=== PATIENT | female | born 1995 | race Caucasian/White ===

== ENCOUNTER 2016-07-24 11:29 | Day surgery (SDC) | payer OTHER ==
[2016-07-23 12:46] VITALS: BMI 26.6
[~2016-07-24 11:29] MED LIST: DEXAMETHASONE SOD PHOSPHATE 10 MG/ML 1 ML VIAL IV ONE; HEPARIN SODIUM,PORCINE 5,000 UNIT/ML 1 ML VIAL SQ ONE; MIDAZOLAM 2 MG/2 ML VIAL IV PRN; ONDANSETRON 4 MG/2 ML VIAL IVP ONE; SCOPOLAMINE 1.5MG/72HR PATCH TRANSDERM ONE; ceFAZolin 2 GM in SODIUM CHLORIDE 0.9% 100 ML IVPB ONE
[2016-07-24] MEDS: LACTATED RINGERS 1,000 ML IV SCH ×2 (12:58→13:09)
--- NOTE | 2016-07-24 13:03 | P.GSHP ---
History of Present Illness H&P Date: 07/24/16 Chief Complaint: Right upper quadrant pain Patient seen in the office last week with complaints of worsening right upper quadrant pain. Pain does radiate to the back. These episodes last 30 minutes to several hours. She does have nausea and vomiting during these episodes. Currently pain free. Recent liver enzymes were normal. Recent white blood cell count slightly elevated. Ultrasound shows gallstones with a thickened gallbladder wall. Denies any changes in the color of her skin urine or stool. Past Medical History Past Medical History: No Reported History Additional Past Medical History / Comment(s): intermittent abdominal pain History of Any Multi-Drug Resistant Organisms: None Reported Past Surgical History: Ear Surgery Past Anesthesia/Blood Transfusion Reactions: No Reported Reaction Additional Past Anesthesia/Blood Transfusion Reaction / Comment(s): no hx blood transfusion Past Psychological History: No Psychological Hx Reported Smoking Status: Former smoker Past Alcohol Use History: None Reported Additional Past Alcohol Use History / Comment(s): quit smoking July 2016, smoked approx 3 yrs <1ppd Past Drug Use History: None Reported - Past Family History Mother Family Medical History: No Reported History Father History Unknown: Yes Medications and Allergies Home Medications Medication Instructions Recorded Confirmed Type Acetaminophen Tab [Tylenol Tab] 650 mg PO Q6H PRN 07/23/16 07/24/16 History Allergies Allergy/AdvReac Type Severity Reaction Status Date / Time No Known Allergies Allergy Verified 07/24/16 12:42 Surgical - Exam Vital Signs Temp Pulse Resp BP Pulse Ox 98.4 F 72 16 104/61 97 07/24/16 12:45 07/24/16 12:45 07/24/16 12:45 07/24/16 12:45 07/24/16 12:45 Physical exam: General: Well-developed, well-nourished HEENT: Normocephalic, sclerae nonicteric Abdomen: Nontender, nondistended Extremities: No edema Neuro: Alert and oriented Assessment and Plan (1) Chronic cholecystitis Narrative/Plan: Will proceed with laparoscopic cholecystectomy today. Risks of bleeding, infection, bile leak, bile duct injury, retained common bile duct stone, conversion to an open procedure were discussed. She understands and wishes to proceed. Status: Acute
[2016-07-24] MEDS ORDERED: BUPIVACAIN-EPI 0.25%-1:200,000 30 ML VIAL SQ ONE ×2 (13:10)
[2016-07-24] MEDS ORDERED: LIDOCAINE 1% INJ 10MG/ML (20 ML MDV) ONE (13:12)
[2016-07-24] MEDS ORDERED: NEOSTIGMINE 1 MG/ML 10 ML VIAL ONE (13:12)
[2016-07-24] MEDS ORDERED: fentaNYL (PF) 50 MCG/ML 2 ML AMP ONE (13:12)
[2016-07-24] MEDS ORDERED: PROPOFOL 10 MG/ML 20 ML VIAL IV ONE (13:12)
[2016-07-24] MEDS ORDERED: SUCCINYLCHOLINE CHLORIDE 100 MG/5 ML SYR IV ONE (13:12)
[2016-07-24] MEDS ORDERED: VECURONIUM 10 MG VIAL IV ONE (13:12)
[2016-07-24] MEDS ORDERED: MIDAZOLAM 2 MG/2 ML VIAL ONE (13:12)
[2016-07-24] MEDS ORDERED: GLYCOPYRROLATE 0.2 MG/ML 2 ML VIAL ONE (13:12)
[2016-07-24] MEDS ORDERED: NALOXONE 0.4 MG/ML 1 ML VIAL IV PRN (14:16)
--- NOTE | 2016-07-24 14:17 | P.PCN ---
Date of Procedure: 07/24/16 Procedure(s) Performed: PREOPERATIVE DIAGNOSIS: Chronic cholecystitis POSTOPERATIVE DIAGNOSIS: Same PROCEDURE: Laparoscopic cholecystectomy SURGEON: Taj EBL: Minimal see anesthesia record ANESTHESIA: Gen. COMPLICATIONS: None OPERATIVE PROCEDURE: The patient was brought and placed on the operating room table in the supine position. The patient was placed under general anesthesia at that time. The abdomen was prepped and draped in the usual sterile fashion. A small vertical infraumbilical incision was made. The fascia was grasped with the Rod forceps. The fascia was retracted anteriorly. The Veress needle was advanced into the peritoneal cavity. The saline drop test was normal. Insufflation took place up to 15 mmHg. A 5 mm optical trocar was advanced and the peritoneal cavity. 2 additional 5 mm trochars were placed in the right upper quadrant under direct visualization. A 10 mm trocar was advanced into the epigastric incision site. The gallbladder was retracted superiorly and laterally. The peritoneum overlying the infundibulum was bluntly dissected. The patient's cystic duct was visualized. The junction between the cystic duct common and hepatic duct was identified. The cystic duct was then divided after placement of 3 10 mm clips on the patient's side and one on the specimen side. The cystic artery was identified and clipped as well. A small vessel was seen along the gallbladder fossa and clipped as well. The gallbladder was then removed from the liver bed using electrocautery. The gallbladder was then removed from the epigastric trocar site with an Endo Catch bag. The gallbladder fossa was irrigated with saline. There was no evidence of any bleeding or biliary drainage seen. The trochars were then removed. The fascia at the 10 millimeter site was closed using a 0 Vicryl suture and the Juan Garcia technique. The skin at all 4 sites was closed using a 4-0 Monocryl stitch. At the end of this procedure the sponge and needle counts were correct. DISPOSITION: Stable to the recovery room
[2016-07-24] MEDS: HYDROmorphone 1 MG/ML 1 ML SYRINGE IVP PRN ×2 (14:23→14:46)
[2016-07-24 14:26] VITALS: TEMP 97.1
[2016-07-24] MEDS ORDERED: KETOROLAC 30 MG/ML 1 ML VIAL IVP ONE (14:40)
[2016-07-24] MEDS ORDERED: ONDANSETRON 4 MG/2 ML VIAL IVP ONE (14:46)
[2016-07-24 15:17] VITALS: RESP 16
[2016-07-24] MEDS ORDERED: HYDROcodone/APAP 5-325MG 1 EACH TAB PO ONE (16:53)
[2016-07-24 17:35] VITALS: BP 96/65; PULSE 61
== END 2016-07-24 17:47 | disposition home or self-care (01) ==
LOC: OR 11:29
PROVIDERS: ATTEND Surgery
DX: K80.10 Calculus of gallbladder with chronic cholecystitis without obstruction (principal); Z87.891 Personal history of nicotine dependence; Z79.899 Other long term (current) drug therapy
CPT/HCPCS: 81025; 88304; 47562; J2250; J1644; J1100; J2710; J0690; J2405; J2001; J3010; J1885; J1170; J0330; J2704

== ENCOUNTER 2018-05-26 19:19 | Emergency (ER) | payer OTHER ==
[2018-05-26 19:48] VITALS: RESP 16; TEMP 98.6
--- NOTE | 2018-05-26 20:17 | ED ---
General Adult HPI - General Chief complaint: Extremity Problem,Nontraumatic Stated complaint: Left foot pain Time Seen by Provider: 05/26/18 19:52 Source: patient Mode of arrival: ambulatory Limitations: no limitations - History of Present Illness Initial comments: Well-appearing 23-year-old female who denies past history presents today for chief complaint of left foot swelling and pain times 2 days. He states 2 nights ago she thought she had her foot while sleeping because she woke up with pain in her top of her foot. Patient denies any redness, fever, chills, night sweats, known trauma, falls, history of blood clots, calf pain, history of gout , recent surgeries, history of cancer, bedridden or recent surgery, calf swelling or entire leg swelling, kind tenderness to palpation of the calf, paralysis or recent immobilization of the left lower extremity, remainder of review of systems negative, patient denies any recent shortness of breath, chest pain, back pain, abdominal pain, nausea or vomiting, numbness or tingling , dysuria or hematuria, constipation or diarrhea, headaches or visual changes, or any other complaints. On arrival patient is ambulatory, appearing well nontoxic. - Related Data Home Medications Medication Instructions Recorded Confirmed No Known Home Medications 05/26/18 05/26/18 Allergies Allergy/AdvReac Type Severity Reaction Status Date / Time No Known Allergies Allergy Verified 05/26/18 19:47 Review of Systems ROS Statement: Those systems with pertinent positive or pertinent negative responses have been documented in the HPI. ROS Other: All systems not noted in ROS Statement are negative. Past Medical History Past Medical History: No Reported History Additional Past Medical History / Comment(s): intermittent abdominal pain History of Any Multi-Drug Resistant Organisms: None Reported Past Surgical History: Cholecystectomy, Ear Surgery Past Anesthesia/Blood Transfusion Reactions: No Reported Reaction Additional Past Anesthesia/Blood Transfusion Reaction / Comment(s): no hx blood transfusion Past Psychological History: No Psychological Hx Reported Smoking Status: Current every day smoker Past Alcohol Use History: None Reported Past Drug Use History: None Reported - Past Family History Mother Family Medical History: No Reported History Father History Unknown: Yes General Exam - General Exam Comments Initial Comments: General: The patient is awake and alert, in no distress, and does not appear acutely ill. Eye: Pupils are equal, round and reactive to light, extra-ocular movements are intact. No nystagmus. There is normal conjunctiva bilaterally. No signs of icterus. Ears, nose, mouth and throat: There are moist mucous membranes and no oral lesions. Neck: The neck is supple, there is no tenderness or JVD. Cardiovascular: There is a regular rate and rhythm. No murmur, rub or gallop is appreciated. Respiratory: Lungs are clear to auscultation, respirations are non-labored, breath sounds are equal. No wheezes, stridor, rales, or rhonchi. Gastrointestinal: [Soft, non-distended, non-tender abdomen without masses or organomegaly noted. There is no rebound or guarding present. No CVA tenderness. Bowel sounds are unremarkable.] Musculoskeletal: Upon inspection of the feet bilaterally there is very mild soft tissue swelling without edema of the left dorsum of the foot. There is no erythema there is no warmth to palpation. Normal ROM, no tenderness at the hips knees and ankles patient is able to fully range at the feet with dorsiflexion and plantar flexion without significant distress or pain. Strength 5/5 of the lower extremities including the feet bilaterally. Sensation intact proximal and distal to injury (-) Max, no pain to palpation of calf, no calf swelling. DP pulses equal bilaterally 2+. Capillary refill < 2 seconds. Abrasions contusions hematomas. Neurological: A&O x 3. CN II-XII intact, There are no obvious motor or sensory deficits. Coordination appears grossly intact. Speech is normal. Skin: Skin is warm and dry and no rashes or lesions are noted. Psychiatric: Cooperative, appropriate mood & affect, normal judgment. Limitations: no limitations Course Vital Signs 05/26/18 05/26/18 19:44 21:15 Temperature 98.6 F Pulse Rate 87 78 Respiratory 16 16 Rate Blood Pressure 117/74 116/67 O2 Sat by Pulse 100 96 Oximetry Medical Decision Making - Medical Decision Making D-dimer (-), although low wells score. XR (-). No known injury. No evidence supporting infectious etiology upon physical examination there is no warmth to palpation there is no erythema. Pt afebrile appearing well.patient has normal neurovascular exam equal comparison of the lower extremity bilaterally. Patient was evaluated in person by attending provider Dr. Bateman. This time is unclear patient's cause of pain. We will recommend patient follow-up with primary care provider and return for any worsening symptoms. Including erythema or warmth, fever, persistent or changes in characteristic of pain- patient verbalizes understanding. Patient discharged appearing well deny questions at this time. - Lab Data Lab Results 05/26/18 Range/Units 20:13 D-Dimer 0.24 (<0.60) mg/L FEU Disposition Clinical Impression: Swelling of left foot Disposition: HOME SELF-CARE Condition: Good Instructions (If sedation given, give patient instructions): R.I.C.E. Treatment (ED) Additional Instructions: Please use medication as discussed. Please follow-up with family doctor in the next 2 days. Please return to emergency room if the symptoms increase or worsen or for any other concerns-as best including right foot increasing swelling, right foot redness, increasing pain, coolness of paleness of the extremity. Is patient prescribed a controlled substance at d/c from ED?: No Referrals: Shayy Mcarthur MD [Primary Care Provider] - 1-2 days Time of Disposition: 21:11
--- NOTE | 2018-05-26 20:49 | XR ---
Left foot 3 views. History foot pain. Comparison none. FINDINGS: I see no fracture nor dislocation. Metatarsals are intact. Joint spaces are normal. IMPRESSION: Negative left foot exam.
[2018-05-26 21:19] VITALS: BP 116/67; PULSE 78
== END 2018-05-26 21:15 | disposition home or self-care (01) ==
LOC: EC 19:19
DX: M79.89 Other specified soft tissue disorders (principal); M79.672 Pain in left foot; F17.200 Nicotine dependence, unspecified, uncomplicated
CPT/HCPCS: 36415; 85379; 99283

== ENCOUNTER 2023-05-14 21:09 | Emergency (ER) | payer OTHER ==
[2023-05-14 21:31] VITALS: TEMP 97.9
[2023-05-14] MEDS: KETOROLAC 15 MG/ML 1 ML VIAL IM STA (22:30)
[2023-05-14] MEDS: FAMOTIDINE 20 MG/2 ML VIAL IV STA (22:32)
[2023-05-14 22:43] LABS: Basophils # (A) 0.1 k/uL (0-0.2); Basophils % (A) 1 %; Eosinophils # (A) 0.2 k/uL (0-0.7); Eosinophils % (A) 2 %; HCT 43.7 % (34.0-46.0); Lymphocytes % (A) 25 %; MCH 29.1 pg (25.0-35.0); MCHC 34.2 g/dL (31.0-37.0); MCV 84.9 fL (80.0-100.0); Monocytes # (A) 0.4 k/uL (0-1.0); Monocytes % (A) 4 %; Neutrophils # (A) 7.9 k/uL (1.3-7.7); Neutrophils % (A) 67 %; Platelet Count 217 k/uL (150-450); RBC 5.15 m/uL (3.80-5.40); RDW 12.6 % (11.5-15.5); WBC 11.8 k/uL (3.8-10.6)
--- NOTE | 2023-05-14 22:43 | XR ---
EXAM: XR Chest, 2 Views CLINICAL HISTORY: ITS.REASON XR Reason: Chest Pain TECHNIQUE: Frontal and lateral views of the chest. COMPARISON: Chest radiograph On 02/10/2016 FINDINGS: Hardware: None. Lungs/pleura: Normal. No focal consolidation. No pleural effusion or pneumothorax. Heart/mediastinum: Normal. No cardiomegaly. Soft tissues: Unremarkable. Bones: No acute fracture. Upper abdomen: Cholecystectomy clips in the right upper quadrant. IMPRESSION: No acute disease identified.
[2023-05-14 23:19] LABS: ALT 27 U/L (4-34); AST 29 U/L (14-36); African American GFR (CKD) >90 (>60 ml/min/1.73 sqM); Albumin 3.3 g/dL (3.5-5.0); Alkaline Phosphatase 61 U/L (38-126); Anion Gap 5 mmol/L; Blood Urea Nitrogen 14 mg/dL (7-17); Calcium 8.7 mg/dL (8.4-10.2); Carbon Dioxide 23 mmol/L (22-30); Chloride 109 mmol/L (98-107); Glucose 92 mg/dL (74-99); Lipase 116 U/L (23-300); Magnesium 1.9 mg/dL (1.6-2.3); Non-African American GFR(CKD) >90 (>60 ml/min/1.73 sqM); Potassium 3.7 mmol/L (3.5-5.1); Sodium 137 mmol/L (137-145); Total Bilirubin 0.2 mg/dL (0.2-1.3); Total Protein 5.8 g/dL (6.3-8.2)
[2023-05-14 23:26] LABS: HCG,Qualitative Serum Not Detected
--- NOTE | 2023-05-15 00:38 | ED ---
Chest Pain HPI - General Chief Complaint: Chest Pain Stated Complaint: Chest Pressure,sob Time Seen by Provider: 05/14/23 21:23 Source: patient Mode of arrival: ambulatory Limitations: no limitations - History of Present Illness Initial Comments: 27-year-old female presents emergency department reporting to left chest/epigastric abdominal pain. States the pain started 2 days ago and has been intermittent. The pain is worse with deep inspiration and also got extensively worse after she took a dose of Motrin. States that she does take 800 mg of Motrin every day for various pain. She was seen yesterday at [facility]. Had an EKG and chest x-ray performed. States that everything came back normal and she was discharged home. Pain returned today and therefore she came into our emergency room for further evaluation. Denies history of cardiac disease. States that she will intermittently drink alcohol. Denies concern for . No nausea or vomiting. Denies any changes in her bowel or bladder habits. No calf pain or swelling. No history of DVT or PE. No other alleviating, precipitating or modifying factors - Related Data Previous Rx's Medication Instructions Recorded Famotidine [Pepcid] 20 mg PO BID #60 tablet 05/15/23 Omeprazole [PriLOSEC] 20 mg PO AC-BRKFST #30 cap 05/15/23 Sucralfate [Carafate] 1 gm PO ACHS #56 tablet 05/15/23 Allergies Allergy/AdvReac Type Severity Reaction Status Date / Time No Known Allergies Allergy Verified 05/26/18 19:47 Review of Systems ROS Statement: Those systems with pertinent positive or pertinent negative responses have been documented in the HPI. ROS Other: All systems not noted in ROS Statement are negative. Past Medical History Past Medical History: No Reported History Additional Past Medical History / Comment(s): intermittent abdominal pain History of Any Multi-Drug Resistant Organisms: None Reported Past Surgical History: Cholecystectomy, Ear Surgery Past Anesthesia/Blood Transfusion Reactions: No Reported Reaction Additional Past Anesthesia/Blood Transfusion Reaction / Comment(s): no hx blood transfusion Past Psychological History: No Psychological Hx Reported Smoking Status: Vaper Past Alcohol Use History: None Reported Past Drug Use History: Marijuana - Past Family History Mother Family Medical History: No Reported History Father History Unknown: Yes General Exam Limitations: no limitations General appearance: alert, in no apparent distress Head exam: Present: atraumatic, normocephalic, normal inspection Eye exam: Present: normal appearance, PERRL, EOMI. Absent: scleral icterus, conjunctival injection, periorbital swelling ENT exam: Present: normal exam, mucous membranes moist Neck exam: Present: normal inspection. Absent: tenderness, meningismus, lymphadenopathy Respiratory exam: Present: normal lung sounds bilaterally, chest wall tenderness (Over the left chest wall). Absent: respiratory distress, wheezes, rales, rhonchi, stridor Cardiovascular Exam: Present: regular rate, normal rhythm, normal heart sounds. Absent: systolic murmur, diastolic murmur, rubs, gallop, clicks GI/Abdominal exam: Present: soft, normal bowel sounds. Absent: distended, tenderness, guarding, rebound, rigid Extremities exam: Present: normal inspection, full ROM, normal capillary refill. Absent: tenderness, pedal edema, joint swelling, calf tenderness Back exam: Present: normal inspection Neurological exam: Present: alert, oriented X3, CN II-XII intact Psychiatric exam: Present: normal affect, normal mood Skin exam: Present: warm, dry, intact, normal color. Absent: rash Course Vital Signs 05/14/23 05/15/23 21:17 00:49 Temperature 97.9 F Pulse Rate 85 71 Respiratory 18 16 Rate Blood Pressure 127/76 124/71 O2 Sat by Pulse 98 98 Oximetry Chest Pain MDM - MDM Was pt. sent in by a medical professional or institution ([facility], [facility], urgent care, hospital, or [facility]...) When possible be specific @ -No Did you speak to anyone other than the patient for history (EMS, parent, family, police, friend...)? What history was obtained from this source @ -No Did you review nursing and triage notes (agree or disagree)? Why? @ -I reviewed and agree with nursing and triage notes Were old charts reviewed (outside hosp., previous admission, EMS record, old EKG, old radiological studies, urgent care reports/EKG's, [facility] records)? Report findings @ -No old charts were reviewed Differential Diagnosis (chest pain, altered mental status, abdominal pain women, abdominal pain men, vaginal bleeding, weakness, fever, dyspnea, syncope, headache, dizziness, GI bleed, back pain, seizure, CVA, palpatations, mental health, musculoskeletal)? @ -Differential Abdominal Pain Women: Appendicitis, Cholecystitis, diverticulosis, ischemic bowel, pancreatitis, hepatitis, UTI, gastroenteritis, AAA, incarcerated hernia, bowel obstruction, constipation, inflammatory bowel, hepatitis, peptic ulcer disease, splenic infarction, perforated viscus, vulvitis, ovarian torsion, PID, kidney stone, placenta abruption, this is not meant to be an all-inclusive list Differential Chest Pain: Stable Angina, Unstable Angina, STEMI, NSTEMI Aortic Dissection, Pneumothorax, Musculoskeletal, Esophageal Spasm GERD, Cholecystitis, Pancreatitis, Zoster, this is not meant to be an all-inclusive list. EKG interpreted by me (3pts min.). @ -Yes and demonstrates sinus rhythm with a rate of 64. SD interval 143. QRS 102. QTc of 395. No acute ST segment elevations. No signs of [id number]-[id number] or Brugada syndrome X-rays interpreted by me (1pt min.). @ -Yes and demonstrates no acute process CT interpreted by me (1pt min.). @ -None done U/S interpreted by me (1pt. min.). @ -None done What testing was considered but not performed or refused? (CT, X-rays, U/S, labs)? Why? @ -None What meds were considered but not given or refused? Why? @ -None Did you discuss the management of the patient with other professionals (professionals i.e. , PA, [employer], lab, RT, psych nurse, marriage and family social worker, credit cashier, teacher, strike operations officer, piano case and bench assembler)? Give summary @ -No Was smoking cessation discussed for >3mins.? @ -No Was critical care preformed (if so, how long)? @ -No Were there social determinants of health that impacted care today? How? (Homelessness, low income, unemployed, alcoholism, drug addiction, transportation, low edu. Level, literacy, decrease access to med. care, halfway, rehab)? @ -No Was there de-escalation of care discussed even if they declined (Discuss DNR or withdrawal of care, Hospice)? DNR status @ -No What co-morbidities impacted this encounter? (DM, HTN, Smoking, COPD, CAD, Cancer, CVA, ARF, Chemo, Hep., AIDS, mental health diagnosis, sleep apnea, morbid obesity)? @ -None Was patient admitted / discharged? Hospital course, mention meds given and route, prescriptions, significant lab abnormalities, going to OR and other pertinent info. @ -Discharge. Upon arrival patient was placed in room 15. Thorough history and physical exam was performed. IV access is established. Laboratory studies are conducted. Chest x-ray was performed. Troponin negative. D-dimer negative. Patient did receive Protonix and Toradol. She did have complete resolution in her symptoms. I did discuss the diagnosis, differential treatment options. There is concern for gastritis versus peptic ulcer as patient reports that her symptoms were worse after she took Motrin at home. Patient will be prescribed omeprazole, Pepcid and Carafate. Instructed on the use. Recommended EGD and echo. Patient given names of GI and surgery for endoscopy. Instructed avoid any triggers. Return for any new or worsening symptoms. Patient was agreeable to this plan she was discharged home in stable condition Undiagnosed new problem with uncertain prognosis? @ -Yes Drug Therapy requiring intensive monitoring for toxicity (Heparin, Nitro, Insulin, Cardizem)? @ -No Were any procedures done? @ -No Diagnosis/symptom? @ -Acute epigastric/left upper quadrant abdominal pain Acute, or Chronic, or Acute on Chronic? @ -Acute Uncomplicated (without systemic symptoms) or Complicated (systemic symptoms)? @ -Complicated Side effects of treatment? @ -No Exacerbation, Progression, or Severe Exacerbation? @ -No Poses a threat to life or bodily function? How? (Chest pain, [place], [place], pneumonia, PE, COPD, DKA, ARF, appy, cholecystitis, CVA, Diverticulitis, Homicidal, Suicidal, threat to staff... and all critical care pts) @ -No Disposition Clinical Impression: Chest pain, Epigastric pain Disposition: HOME SELF-CARE Condition: Stable Instructions (If sedation given, give patient instructions): Epigastric Pain (ED) Additional Instructions: Please avoid spicy foods, NSAIDs (Aleve, Advil, ibuprofen, Motrin), and alcohol. Please take the medications as prescribed. Follow-up with either GI or surgery to have an endoscopy. Return for any new or worsening symptoms Prescriptions: Sucralfate [Carafate] 1 gm PO ACHS #56 tablet Famotidine [Pepcid] 20 mg PO BID #60 tablet Omeprazole [PriLOSEC] 20 mg PO [facility] #30 cap Is patient prescribed a controlled substance at d/c from ED?: No Referrals: None,Stated [Primary Care Provider] - 1-2 days Tyron Mueller DO [REFERRING] - 1-2 days Emilia Li MD [STAFF PHYSICIAN] - 1-2 days Jan Buitrago MD [STAFF PHYSICIAN] - 1-2 days Time of Disposition: 00:36
[2023-05-15 01:24] VITALS: BP 124/71; PULSE 71; RESP 16
== END 2023-05-15 00:49 | disposition home or self-care (01) ==
LOC: EC 21:09
DX: R07.89 Other chest pain (principal); R10.13 Epigastric pain; F17.290 Nicotine dependence, other tobacco product, uncomplicated; F12.90 Cannabis use, unspecified, uncomplicated
CPT/HCPCS: 36415; 93005; 85379; 80053; 83690; 83735; 84484; 85025; 84703; 71046; 99285; 96374; 96372; J3490; J1885

== ENCOUNTER 2023-05-17 22:02 | Emergency (ER) | payer OTHER ==
[2023-05-17 22:24] VITALS: TEMP 98.4
--- NOTE | 2023-05-17 22:28 | ED ---
Abdominal Pain HPI - General Source: patient Mode of arrival: ambulatory Limitations: no limitations <Oscar Tom - Last Filed: 05/17/23 22:28> - History of Present Illness MD Complaint: other (Back pain) -: days(s) Radiation: none Migration to: no migration Severity: moderate Quality: aching, sharp Consistency: constant Improves With: rest Worsens With: other (Inspiration) <Luis Minaya - Last Filed: 06/04/23 07:43> - General Chief Complaint: Abdominal Pain Stated Complaint: Abd pain - History of Present Illness Initial Comments: 28-year-old female presents to the ED with a chief complaint of back pain. Patient reports she was recently seen here 2 days ago and was told she may have a gastric ulcer. Patient reports that she has had continued symptoms of left-si ded chest/abdominal pain and back pain prompting presentation to the ED for further evaluation. (Oscar Tom) This patient is a 28-year-old woman who presents to evaluation of of left thoracic back pain. The patient states that had come on a number of days ago. She does note it is worse with deep breath and in certain positions. She denies associated fever, chills, dyspnea. She has had infrequent cough associated. The patient did have some vomiting a couple of days ago and thought there may have been streaks of blood. He has not noted change in bowel movements or urination. (Luis Minaya) - Related Data Previous Rx's Medication Instructions Recorded Famotidine [Pepcid] 20 mg PO BID #60 tablet 05/15/23 Omeprazole [PriLOSEC] 20 mg PO AC-BRKFST #30 cap 05/15/23 Sucralfate [Carafate] 1 gm PO ACHS #56 tablet 05/15/23 Naproxen 250 mg PO BID #20 tab 05/18/23 Allergies Allergy/AdvReac Type Severity Reaction Status Date / Time No Known Allergies Allergy Verified 05/17/23 22:21 Review of Systems ROS Other: All systems not noted in ROS Statement are negative. <Oscar Tom - Last Filed: 05/17/23 22:28> ROS Other: All systems not noted in ROS Statement are negative. Constitutional: Denies: fever, chills, weakness Respiratory: Reports: cough. Denies: dyspnea, wheezes Cardiovascular: Denies: chest pain, palpitations, dyspnea on exertion, orthopnea, edema, syncope Gastrointestinal: Denies: abdominal pain, nausea, vomiting, diarrhea, melena, hematochezia Genitourinary: Denies: dysuria, hematuria Musculoskeletal: Reports: as per HPI, back pain Skin: Denies: rash Neurological: Denies: headache, weakness, numbness <uLis Minaya - Last Filed: 06/04/23 07:43> ROS Statement: Those systems with pertinent positive or pertinent negative responses have been documented in the HPI. Past Medical History Past Medical History: No Reported History Additional Past Medical History / Comment(s): intermittent abdominal pain History of Any Multi-Drug Resistant Organisms: None Reported Past Surgical History: Cholecystectomy, Ear Surgery Past Anesthesia/Blood Transfusion Reactions: No Reported Reaction Additional Past Anesthesia/Blood Transfusion Reaction / Comment(s): no hx blood transfusion Past Psychological History: No Psychological Hx Reported Smoking Status: Vaper Past Alcohol Use History: None Reported Past Drug Use History: Marijuana - Past Family History Mother Family Medical History: No Reported History Father History Unknown: Yes <VaishaliOscar - Last Filed: 05/17/23 22:28> General Exam Limitations: no limitations <VaishaliOscar - Last Filed: 05/17/23 22:28> Limitations: no limitations General appearance: alert, in no apparent distress Head exam: Present: atraumatic, normocephalic Eye exam: Present: normal appearance. Absent: scleral icterus, conjunctival injection ENT exam: Present: normal oropharynx Neck exam: Present: normal inspection, full ROM Respiratory exam: Present: normal lung sounds bilaterally, chest wall tenderness. Absent: respiratory distress, wheezes, rales, rhonchi, stridor, accessory muscle use Cardiovascular Exam: Present: regular rate, normal rhythm, normal heart sounds. Absent: systolic murmur, diastolic murmur, rubs, gallop GI/Abdominal exam: Present: soft. Absent: distended, tenderness, guarding, rebound, rigid, mass Extremities exam: Present: normal inspection, normal capillary refill. Absent: pedal edema, calf tenderness Back exam: Present: normal inspection. Absent: CVA tenderness (R), CVA tenderness (L) Neurological exam: Present: alert Skin exam: Present: warm, dry, intact, normal color. Absent: rash <Luis Minaya - Last Filed: 06/04/23 07:43> - General Exam Comments Initial Comments: Visual Physical Exam Vital signs reviewed General: Well-appearing, nontoxic, no acute distress. Head: Normocephalic, atraumatic Eyes: PERRLA, EOMI ENT: Airway patent Chest: Nonlabored breathing Skin: No visual rash, normal skin tone Neuro: Alert and oriented 3 Musculoskeletal: No gross abnormalities (Oscar Tom) Course Vital Signs 05/17/23 05/18/23 05/18/23 22:17 01:30 03:56 Temperature 98.4 F Pulse Rate 89 70 55 L Respiratory 17 16 16 Rate Blood Pressure 127/74 122/91 115/73 O2 Sat by Pulse 100 100 97 Oximetry 05/18/23 04:56 Temperature Pulse Rate 58 L Respiratory 16 Rate Blood Pressure 126/90 O2 Sat by Pulse 99 Oximetry Medical Decision Making <Oscar Tom - Last Filed: 05/17/23 22:28> - Lab Data Result diagrams: 05/17/23 23:04 05/17/23 23:04 <MarimarLuis - Last Filed: 06/04/23 07:43> - Medical Decision Making Quicknote portion performed. Signed Oscar Tom PA-C (Oscar Tom) The patient had CT of the chest with contrast which I interpreted as being negative for acute pulmonary embolism. There is small pleural effusion. Patient is a 28-year-old woman with pleuritic left thoracic back pain. Her CT scan does show small effusion. She did have relief of symptoms with analgesia here. Vital signs are stable and she will continue as outpatient. We discussed appropriate return parameters as well as further care and follow-up. Was pt. sent in by a medical professional or institution (, PA, NIGHT TIME BABYSITTER, urgent care, hospital, or [facility]...) When possible be specific @ -[No] Did you speak to anyone other than the patient for history (EMS, parent, family, police, friend...)? What history was obtained from this source @ -[No] Did you review nursing and triage notes (agree or disagree)? Why? @ -[I reviewed and agree with nursing and triage notes] Were old charts reviewed (outside hosp., previous admission, EMS record, old EKG, old radiological studies, urgent care reports/EKG's, [facility] records)? Report findings @ -[No old charts were reviewed] Differential Diagnosis (chest pain, altered mental status, abdominal pain women, abdominal pain men, vaginal bleeding, weakness, fever, dyspnea, syncope, headach e, dizziness, GI bleed, back pain, seizure, CVA, palpatations, mental health, musculoskeletal)? @ -[Differential Chest Pain: Stable Angina, Unstable Angina, STEMI, NSTEMI Aortic Dissection, Pneumothorax, Musculoskeletal, Esophageal Spasm GERD, Cholecystitis, Pancreatitis, Zoster, this is not meant to be an all-inclusive list. EKG interpreted by me (3pts min.). @ -[I interpreted as above] X-rays interpreted by me (1pt min.). @ -[None done] CT interpreted by me (1pt min.). @ -[I interpreted as above U/S interpreted by me (1pt. min.). @ -[None done] What testing was considered but not performed or refused? (CT, X-rays, U/S, labs)? Why? @ -[None] What meds were considered but not given or refused? Why? @ -[None] Did you discuss the management of the patient with other professionals ( professionals i.e. , PA, NIGHT TIME BABYSITTER, lab, RT, psych nurse, sr. social media & mobile manager, patternmaker sample, teacher, transportation security officer, case aide)? Give summary @ -[No] Was smoking cessation discussed for >3mins.? @ -[No] Was critical care preformed (if so, how long)? @ -[No] Were there social determinants of health that impacted care today? How? (Homelessness, low income, unemployed, alcoholism, drug addiction, transportati on, low edu. Level, literacy, decrease access to med. care, usp, rehab)? @ -[No] Was there de-escalation of care discussed even if they declined (Discuss DNR or withdrawal of care, Hospice)? DNR status @ -[No] What co-morbidities impacted this encounter? (DM, HTN, Smoking, COPD, CAD, Cancer, CVA, ARF, Chemo, Hep., AIDS, mental health diagnosis, sleep apnea, morbid obesity)? @ -[None] Was patient admitted / discharged? Hospital course, mention meds given and route, prescriptions, significant lab abnormalities, going to OR and other pertinent info. @ -[As above Undiagnosed new problem with uncertain prognosis? @ -[No] Drug Therapy requiring intensive monitoring for toxicity (Heparin, Nitro, Insulin, Cardizem)? @ -[No] Were any procedures done? @ -[No] Diagnosis/symptom? @ -[Acute pleuritis Acute, or Chronic, or Acute on Chronic? @ -[Acute Uncomplicated (without systemic symptoms) or Complicated (systemic symptoms)? @ -[Uncomplicated Side effects of treatment? @ -[No] Exacerbation, Progression, or Severe Exacerbation? @ -[No] Poses a threat to life or bodily function? How? (Chest pain, [place], [place], pneumonia, PE, COPD, DKA, ARF, appy, cholecystitis, CVA, Diverticulitis, Homicidal, Suicidal, threat to staff... and all critical care pts) @ -[No] (Luis Minaya) - Lab Data Lab Results 05/17/23 05/17/23 05/17/23 Range/Units 23:04 23:04 23:04 WBC 11.0 H (3.8-10.6) k/uL RBC 5.11 (3.80-5.40) m/uL Hgb 14.5 (11.4-16.0) gm/dL Hct 43.3 (34.0-46.0) % MCV 84.7 (80.0-100.0) fL MCH 28.3 (25.0-35.0) pg MCHC 33.4 (31.0-37.0) g/dL RDW 12.9 (11.5-15.5) % Plt Count 231 (150-450) k/uL MPV 8.9 Neutrophils % 64 % Lymphocytes % 28 % Monocytes % 4 % Eosinophils % 2 % Basophils % 1 % Neutrophils # 7.1 (1.3-7.7) k/uL Lymphocytes # 3.1 (1.0-4.8) k/uL Monocytes # 0.4 (0-1.0) k/uL Eosinophils # 0.2 (0-0.7) k/uL Basophils # 0.1 (0-0.2) k/uL Sodium (137-145) mmol/L Potassium (3.5-5.1) mmol/L Chloride (98-107) mmol/L Carbon Dioxide (22-30) mmol/L Anion Gap mmol/L BUN (7-17) mg/dL Creatinine (0.52-1.04) mg/dL Est GFR (CKD-EPI)AfAm (>60 ml/min/1.73 sqM) Est GFR (CKD-EPI)NonAf (>60 ml/min/1.73 sqM) Glucose (74-99) mg/dL Calcium (8.4-10.2) mg/dL Total Bilirubin (0.2-1.3) mg/dL AST (14-36) U/L ALT (4-34) U/L Alkaline Phosphatase (38-126) U/L Troponin I (0.000-0.034) ng/mL Total Protein (6.3-8.2) g/dL Albumin (3.5-5.0) g/dL Amylase (30-110) U/L Lipase (23-300) U/L Urine Color Colorless Urine Appearance Clear (Clear) Urine pH 7.5 (5.0-8.0) Ur Specific [place] 1.007 (1.001-1.035) Urine Protein Negative (Negative) Urine Glucose (UA) Negative (Negative) Urine Ketones Negative (Negative) Urine Blood Negative (Negative) Urine Nitrite Negative (Negative) Urine Bilirubin Negative (Negative) Urine Urobilinogen <2.0 (<2.0) mg/dL Ur Leukocyte Esterase Moderate H (Negative) Urine RBC 1 (0-5) /hpf Urine WBC 19 H (0-5) /hpf Ur Squamous Epith Cells 6 H (0-4) /hpf Amorphous Sediment Rare H (None) /hpf Urine Bacteria Moderate H (None) /hpf Urine Mucus Rare H (None) /hpf Urine HCG, Qual Not Detected (Not Detectd) 05/17/23 05/18/23 Range/Units 23:04 01:30 WBC (3.8-10.6) k/uL RBC (3.80-5.40) m/uL Hgb (11.4-16.0) gm/dL Hct (34.0-46.0) % MCV (80.0-100.0) fL MCH (25.0-35.0) pg MCHC (31.0-37.0) g/dL RDW (11.5-15.5) % Plt Count (150-450) k/uL MPV Neutrophils % % Lymphocytes % % Monocytes % % Eosinophils % % Basophils % % Neutrophils # (1.3-7.7) k/uL Lymphocytes # (1.0-4.8) k/uL Monocytes # (0-1.0) k/uL Eosinophils # (0-0.7) k/uL Basophils # (0-0.2) k/uL Sodium 136 L (137-145) mmol/L Potassium 3.9 (3.5-5.1) mmol/L Chloride 108 H (98-107) mmol/L Carbon Dioxide 26 (22-30) mmol/L Anion Gap 2 mmol/L BUN 9 (7-17) mg/dL Creatinine 0.88 (0.52-1.04) mg/dL Est GFR (CKD-EPI)AfAm >90 (>60 ml/min/1.73 sqM) Est GFR (CKD-EPI)NonAf >90 (>60 ml/min/1.73 sqM) Glucose 88 (74-99) mg/dL Calcium 8.6 (8.4-10.2) mg/dL Total Bilirubin 0.4 (0.2-1.3) mg/dL AST 34 (14-36) U/L ALT 28 (4-34) U/L Alkaline Phosphatase 65 (38-126) U/L Troponin I <0.012 (0.000-0.034) ng/mL Total Protein 6.2 L (6.3-8.2) g/dL Albumin 3.6 (3.5-5.0) g/dL Amylase 41 (30-110) U/L Lipase 86 (23-300) U/L Urine Color Urine Appearance (Clear) Urine pH (5.0-8.0) Ur Specific [place] (1.001-1.035) Urine Protein (Negative) Urine Glucose (UA) (Negative) Urine Ketones (Negative) Urine Blood (Negative) Urine Nitrite (Negative) Urine Bilirubin (Negative) Urine Urobilinogen (<2.0) mg/dL Ur Leukocyte Esterase (Negative) Urine RBC (0-5) /hpf Urine WBC (0-5) /hpf Ur Squamous Epith Cells (0-4) /hpf Amorphous Sediment (None) /hpf Urine Bacteria (None) /hpf Urine Mucus (None) /hpf Urine HCG, Qual (Not Detectd) Disposition <Oscar Tom - Last Filed: 05/17/23 22:28> Is patient prescribed a controlled substance at d/c from ED?: No <Luis Minaya - Last Filed: 06/04/23 07:43> Clinical Impression: Pleuritis Disposition: HOME SELF-CARE Condition: Good Instructions (If sedation given, give patient instructions): Pleurisy (DC) Prescriptions: Naproxen 250 mg PO BID #20 tab Referrals: Kaley Khan MD [Primary Care Provider] - 1-2 days
[2023-05-17 23:31] LABS: Basophils # (A) 0.1 k/uL (0-0.2); Basophils % (A) 1 %; Eosinophils # (A) 0.2 k/uL (0-0.7); Eosinophils % (A) 2 %; HCT 43.3 % (34.0-46.0); HGB 14.5 gm/dL (11.4-16.0); Lymphocytes # (A) 3.1 k/uL (1.0-4.8); Lymphocytes % (A) 28 %; MCH 28.3 pg (25.0-35.0); MCHC 33.4 g/dL (31.0-37.0); MCV 84.7 fL (80.0-100.0); Mean Platelet Volume 8.9; Monocytes # (A) 0.4 k/uL (0-1.0); Monocytes % (A) 4 %; Neutrophils # (A) 7.1 k/uL (1.3-7.7); Neutrophils % (A) 64 %; Platelet Count 231 k/uL (150-450); RBC 5.11 m/uL (3.80-5.40); RDW 12.9 % (11.5-15.5)
[2023-05-17 23:45] LABS: ALT 28 U/L (4-34); African American GFR (CKD) >90 (>60 ml/min/1.73 sqM); Albumin 3.6 g/dL (3.5-5.0); Amylase 41 U/L (30-110); Anion Gap 2 mmol/L; Blood Urea Nitrogen 9 mg/dL (7-17); Calcium 8.6 mg/dL (8.4-10.2); Carbon Dioxide 26 mmol/L (22-30); Chloride 108 mmol/L (98-107); Glucose 88 mg/dL (74-99); Lipase 86 U/L (23-300); Non-African American GFR(CKD) >90 (>60 ml/min/1.73 sqM); Sodium 136 mmol/L (137-145); Total Bilirubin 0.4 mg/dL (0.2-1.3); Total Protein 6.2 g/dL (6.3-8.2)
[2023-05-17 23:47] LABS: AST 34 U/L (14-36); Alkaline Phosphatase 65 U/L (38-126); Potassium 3.9 mmol/L (3.5-5.1)
[2023-05-18 00:34] LABS: Amorphous Sediment,Urine Rare /hpf; Appearance,Urine Clear (Clear); Bacteria,Urine Moderate /hpf; Bilirubin,Urine Negative (Negative); Blood,Urine Negative (Negative); Color,Urine Colorless; Glucose,Urine (UA) Negative (Negative); Ketones,Urine Negative (Negative); Leukocyte Esterase,Urine Moderate (Negative); Mucus,Urine Rare /hpf; Nitrite,Urine Negative (Negative); PH, Urine 7.5 (5.0-8.0); Protein,Urine Negative (Negative); RBC,Urine 1 /hpf (0-5); Specific Gravity,Urine 1.007 (1.001-1.035); Squamous Epithelial Cell,Urine 6 /hpf (0-4); Urobilinogen,Urine <2.0 mg/dL (<2.0); WBC,Urine 19 /hpf (0-5)
[2023-05-18] MEDS: KETOROLAC 15 MG/ML 1 ML VIAL IVP STA (01:34)
[2023-05-18 01:55] VITALS: RESP 16
[2023-05-18] MEDS: MORPHINE SULFATE 4 MG/ML SYRINGE IV STA (02:30)
--- NOTE | 2023-05-18 04:43 | CT ---
EXAM: CT Angiography Chest With Intravenous Contrast CLINICAL HISTORY: Pleuritic chest pain TECHNIQUE: Axial computed tomographic angiography images of the chest with intravenous contrast. CTDI is 15.7 mGy and DLP is 340.4 mGy-cm. This CT exam was performed using one or more of the following dose reduction techniques: automated exposure control, adjustment of the mA and/or kV according to patient size, and/or use of iterative reconstruction technique. 3D and MIP reconstructed images were created and reviewed. COMPARISON: Chest x-ray 05/14/2023 FINDINGS: Pulmonary arteries: No pulmonary embolism. Aorta: No thoracic aortic aneurysm or dissection. Lungs: Minimal dependent left greater than right probable atelectasis. No definite focal lobar pneumonia.. Pleural space: Small left pleural effusion. No pneumothorax. Heart: No cardiomegaly. Small pericardial effusion. No evidence of RV dysfunction. Bones/joints: No acute fracture. Soft tissues: Unremarkable. Abdomen: Post cholecystectomy.. IMPRESSION: No pulmonary embolism. Small left pleural effusion. Minimal dependent atelectasis. Small pericardial effusion.
[2023-05-18 04:58] VITALS: BP 126/90; PULSE 58
== END 2023-05-18 04:57 | disposition home or self-care (01) ==
LOC: EC 22:02
DX: J90 Pleural effusion, not elsewhere classified (principal); F12.90 Cannabis use, unspecified, uncomplicated; F17.290 Nicotine dependence, other tobacco product, uncomplicated; Z90.49 Acquired absence of other specified parts of digestive tract
CPT/HCPCS: 99284 ×2; 96374 ×2; 96375 ×2; 36415 ×2; 80053; 82150; 83690; 84484; 85025; 81001; 81025; 71275; J2270; J1885; Q9967

== ENCOUNTER 2023-06-16 09:03 | Day surgery (SDC) | payer OTHER ==
[2023-06-14 16:21] VITALS: BMI 32.9
[2023-06-16] MEDS ORDERED: LIDOCAINE 1% (10MG/ML) FOR IV START INTRADERMA PRN (09:32)
[2023-06-16] MEDS ORDERED: LACTATED RINGERS 1,000 ML IV SCH (09:32)
[2023-06-16] MEDS: LACTATED RINGERS 1,000 ML IV ONE ×2 (09:49→10:18)
[2023-06-16 10:00] VITALS: TEMP 96.7
[2023-06-16] MEDS ORDERED: LIDOCAINE 1% INJ 10MG/ML (20 ML MDV) ONE (10:19)
[2023-06-16] MEDS ORDERED: PROPOFOL 10 MG/ML 20 ML VIAL IV ONE (10:19)
--- NOTE | 2023-06-16 10:44 | P.PCN ---
Date of Procedure: 06/16/23 Procedure(s) Performed: BRIEF HISTORY: Patient is a 28-year-old, pleasant, white female scheduled for an upper endoscopy as a part of evaluation of chronic epigastric pain for the last 2 weeks' duration. She was recently started on omeprazole 20 mg daily as well as Carafate and symptoms are gradually improving. Scheduled for an upper endoscopy to look peptic ulcer disease. PROCEDURE PERFORMED: Esophagogastroduodenoscopy with biopsy. PREOPERATIVE DIAGNOSIS: Epigastric pain. IV sedation per anesthesia. PROCEDURE: After informed consent was obtained, the patient was brought into the endoscopy unit. IV sedation was administered by Anesthesia under continuous monitoring. Initially the Olympus GIF-140 video endoscope was inserted into the mouth. Esophagus intubated without any difficulty. It was gradually advanced into the stomach and duodenum and carefully examined. The bulb of the duodenum appeared normal. There was mild duodenitis seen and biopsies were done in the second part of the duodenum. The scope at this time was withdrawn to the stomach, adequately insufflated with air, and upon careful examination, mucosa of the antrum, had mild diffuse gastritis and biopsies were done from this area. Mucosa of the body, cardia and the fundus appeared normal. The scope was then withdrawn into the esophagus. Hiatal hernia noted. The GE junction was located at 39 cm from the incisors. The esophagus appeared normal. There were no erosions or ulcerations seen and the patient tolerated the procedure well. IMPRESSION: 1. Antral gastritis. 2. Mild duodenitis 3. Mall hiatal hernia. RECOMMENDATIONS: The findings of this examination were discussed with the patient as well as her family. She was advised to continue with omeprazole 20 mg twice daily and follow antireflux measures..
[2023-06-16 11:10] VITALS: BP 99/58; PULSE 63; RESP 16
== END 2023-06-16 11:35 | disposition home or self-care (01) ==
LOC: ORWHC2ENDO 09:03
PROVIDERS: ATTEND Internal Medicine Gastroenterology
DX: K29.50 Unspecified chronic gastritis without bleeding (principal); K29.80 Duodenitis without bleeding; K44.9 Diaphragmatic hernia without obstruction or gangrene; L98.499 Non-pressure chronic ulcer of skin of other sites with unspecified severity; F17.200 Nicotine dependence, unspecified, uncomplicated; Z79.899 Other long term (current) drug therapy
CPT/HCPCS: 81025; 88305; 43239; J2001; J2704

== ENCOUNTER 2023-06-21 16:25 | Emergency (ER) | payer OTHER ==
--- NOTE | 2023-06-21 17:07 | ED ---
ENT HPI - General Chief complaint: ENT Stated complaint: Throat Pain Time Seen by Provider: 06/21/23 16:56 Source: patient, family, RN notes reviewed Mode of arrival: ambulatory Limitations: no limitations - History of Present Illness Initial comments: This is a 28-year-old female who presents to the emergency department for a sore throat. Patient had an upper endoscopy 5 days ago, and the next day she started to notice that her throat was increasingly red, swollen, and painful. States that is getting worse and she is having difficulty swallowing due to the pain. Denies any chest pain or shortness of breath. Has not had any fever/chills. Unsure if this is related to the endoscopy or something else. Denies any coughing or congestion. She has not taken anything for her symptoms. She has not had an endoscopy prior to this. MD complaint: sore throat - Related Data Home Medications Medication Instructions Recorded Confirmed Etonogestrel [Nexplanon] 68 mg SQ DIRECTED 06/14/23 06/16/23 Previous Rx's Medication Instructions Recorded Omeprazole [PriLOSEC] 20 mg PO AC-BRKFST #30 cap 05/15/23 Sucralfate [Carafate] 1 gm PO ACHS #56 tablet 05/15/23 Acet/Diph/Lido/Qxkv-Jqp-Eql-Si 5 ml PO Q4-6H PRN #240 ml 06/21/23 [Tyl/Benadryl/Lido/Maalox] Amoxicillin 875 mg PO Q12HR 10 Days #20 tablet 06/21/23 Amoxicillin 875 mg PO Q12HR 10 Days #20 tablet 06/21/23 Allergies Allergy/AdvReac Type Severity Reaction Status Date / Time No Known Allergies Allergy Verified 06/21/23 16:36 Review of Systems ROS Statement: Those systems with pertinent positive or pertinent negative responses have been documented in the HPI. ROS Other: All systems not noted in ROS Statement are negative. Past Medical History Past Medical History: No Reported History, GERD/Reflux Additional Past Medical History / Comment(s): stomach ulcers, hx of blood in stool and emesis., History of Any Multi-Drug Resistant Organisms: None Reported Past Surgical History: Cholecystectomy, Ear Surgery Past Anesthesia/Blood Transfusion Reactions: No Reported Reaction Additional Past Anesthesia/Blood Transfusion Reaction / Comment(s): no hx blood transfusion Past Psychological History: Anxiety, Depression Smoking Status: Former smoker, Vaper Past Alcohol Use History: None Reported Past Drug Use History: Marijuana - Past Family History Mother Family Medical History: No Reported History Father History Unknown: Yes Family Medical History: No Reported History General Exam Limitations: no limitations General appearance: alert, in no apparent distress Head exam: Present: atraumatic, normocephalic, normal inspection ENT exam: Present: other (Posterior pharyngeal erythema with 3+ tonsillar hypertrophy) Respiratory exam: Present: normal lung sounds bilaterally. Absent: respiratory distress, wheezes, rales, rhonchi, stridor Cardiovascular Exam: Present: regular rate, normal rhythm, normal heart sounds. Absent: systolic murmur, diastolic murmur, rubs, gallop, clicks Neurological exam: Present: alert, oriented X3, CN II-XII intact Psychiatric exam: Present: normal affect, normal mood Skin exam: Present: warm, dry, intact, normal color. Absent: rash Course Vital Signs 06/21/23 06/21/23 16:27 18:56 Temperature 97.5 F L 98.1 F Pulse Rate 81 76 Respiratory 20 18 Rate Blood Pressure 122/83 118/76 O2 Sat by Pulse 97 98 Oximetry Medical Decision Making - Medical Decision Making This is a 28-year-old female who presents to the emergency department for a sore throat. Was pt. sent in by a medical professional or institution? @ -No Did you speak to anyone other than the patient for history? @ -No Did you review nursing and triage notes? @ -Yes, and I agree, it is accurate with regards to the patient's symptoms. Were old charts reviewed? @ -No Differential Diagnosis? @ -Differential Sore Throat: Strep pharyngitis, herpes zoster, COVID, influenza, GERD, allergic rhinitis, mononucleosis, this is not meant to be an all-inclusive list. EKG interpreted by me (3pts min.)? @ -Not obtained X-rays interpreted by me (1pt min.)? @ -Not obtained CT interpreted by me (1pt min.)? @ -Not obtained U/S interpreted by me (1pt. min.)? @ -Not obtained What testing was considered but not performed? (CT, X-rays, U/S, labs)? Why? @ -None What meds were considered but not given? Why? @ -None Did you discuss the management of the patient with other professionals? @ -No Did you reconcile home meds? @ -No Was smoking cessation discussed for >3mins.? @ -I discussed smoking cessation for greater than 3 minutes. The risk of smoking were discussed with the patient including but not limited to risks of cancer, stroke, coronary artery disease and COPD. Also discussed with patient were multiple methods of quitting smoking. Lastly we discussed the financial cost of smoking. Was critical care preformed (if so, how long)? @ -No Were there social determinants of health that impacted care today? How? (Homelessness, low income, unemployed, alcoholism, drug addiction, transportation, low edu. Level, literacy, decrease access to med. care, half-way, rehab)? @ -No Was there de-escalation of care discussed even if they declined? (Discuss DNR or withdrawal of care, Hospice)? @ -No What co-morbidities impacted this encounter? (DM, HTN, Smoking, COPD, CAD, Cancer, CVA, Hep., AIDS, mental health diagnosis, sleep apnea, morbid obesity)? @ -GERD, smoking Was patient admitted / discharged? @ -Discharged. Rapid strep test positive. COVID, influenza, and RSV testing negative. Patient given Toradol, Decadron, and a GI cocktail in the emergency department with some improvement in symptoms. Initial dose of amoxicillin provided as well. Prescription for amoxicillin and magic mouthwash provided with dosing instructions reviewed. Patient discharged home in stable condition. Undiagnosed new problem with uncertain prognosis? @ -None Drug Therapy requiring intensive monitoring for toxicity (Heparin, Nitro, Insulin, Cardizem)? @ -None Were any procedures done? @ -None Diagnosis/symptom? @ -Strep throat Acute, or Chronic, or Acute on Chronic? @ -Acute Uncomplicated (without systemic symptoms) or Complicated (systemic symptoms)? @ -Uncomplicated Side effects of treatment? @ -None Exacerbation, Progression, or Severe Exacerbation] @ -Not applicable Poses a threat to life or bodily function? @ -No Return precautions reviewed in depth, the patient is instructed to return to the emergency department with any new, worsening, or concerning symptoms. Patient verbalized understanding. This case was discussed in detail with the attending ED physician, Dr. Burgess. Presentation, findings, and treatment plan discussed in detail as well. - Lab Data Lab Results 06/21/23 06/21/23 Range/Units 17:03 17:04 Influenza Type A (PCR) Not Detected (Not Detectd) Influenza Type B (PCR) Not Detected (Not Detectd) RSV (PCR) Not Detected (Not Detectd) SARS-CoV-2 (PCR) Not Detected (Not Detectd) Group A Strep (PCR) DETECTED A (Not Detectd) Disposition Clinical Impression: Strep throat, Nicotine dependence Disposition: HOME SELF-CARE Instructions (If sedation given, give patient instructions): Strep Throat (ED) Additional Instructions: Return to the emergency department with any new, worsening, or concerning symptoms. Take the antibiotic as prescribed for 10 days. Take Tylenol as needed for pain relief. You can use the mouthwash every 4-6 hours as needed for the sore throat. Follow up with your primary care provider in 1-2 days. Prescriptions: Amoxicillin 875 mg PO Q12HR 10 Days #20 tablet Amoxicillin 875 mg PO Q12HR 10 Days #20 tablet Acet/Diph/Lido/Ltqz-Ylc-Cqy-Si [Tyl/Benadryl/Lido/Maalox] 5 ml PO Q4-6H PRN #240 ml PRN Reason: Sore Throat Is patient prescribed a controlled substance at d/c from ED?: No Referrals: Kaley Khan MD [Primary Care Provider] - 1-2 days Time of Disposition: 18:06
[2023-06-21] MEDS: KETOROLAC 15 MG/ML 1 ML VIAL IM STA (17:17)
[2023-06-21] MEDS: MAG HYDROX/AL HYDROX/SIMETH 30 ML, HYOSCYAMINE ELIXIR 10 ML, LIDOCAINE VISCOUS 2% 10 ML PO STA (17:17)
[2023-06-21] MEDS: DEXAMETHASONE SOD PHOSPHATE 10 MG/ML 1 ML VIAL IM STA (17:18)
[2023-06-21] MEDS: AMOXICILLIN 875 MG TAB PO STA (18:07)
[2023-06-21] MEDS: MORPHINE SULFATE 2 MG/ML SYRINGE IM STA (18:27)
[2023-06-21] MEDS: ACET/COD 300 MG/30 MG STARTER PACK 6 TAB BTL PO STA (18:28)
[2023-06-21 18:58] VITALS: BP 118/76; PULSE 76; RESP 18; TEMP 98.1
== END 2023-06-21 18:58 | disposition home or self-care (01) ==
LOC: EC 16:25
DX: J02.0 Streptococcal pharyngitis (principal); F17.200 Nicotine dependence, unspecified, uncomplicated; B95.0 Streptococcus, group A, as the cause of diseases classified elsewhere; F17.290 Nicotine dependence, other tobacco product, uncomplicated; F12.90 Cannabis use, unspecified, uncomplicated
CPT/HCPCS: 87651; 87636; 99283; 96372 ×3; 99406; J1100; J2270; J1885

== ENCOUNTER → 2024-06-22 | Outpatient (CLI) | payer OTHER ==
[2024-06-22 20:17] LABS: Gliadin AB IgA, Deaminated Positive (Negative); Gliadin AB IgA, Unit >250.0 U/mL; Gliadin AB IgG, Deaminated Positive (Negative); Gliadin AB IgG, Unit 24.6 U/mL
== END | disposition home or self-care (01) ==
LOC: LABWHC1 13:47
PROVIDERS: ATTEND Nurse Practitioner Family
DX: R10.13 Epigastric pain (principal)
CPT/HCPCS: 36415; 83516

== ENCOUNTER → 2024-07-07 | Outpatient (CLI) | payer OTHER ==
--- NOTE | 2024-07-07 08:48 | US ---
EXAMINATION TYPE: US abdomen complete DATE OF EXAM: 07/07/2024 COMPARISON: CT: 05/18/23 CLINICAL INDICATION: Female, 29 years old with history of R74.8 ABNORMAL LEVELS OF OTHER SERUM ENZYME S; abnormal labwork. Cholecystectomy TECHNIQUE: Grayscale and color Doppler imaging of the abdomen was performed. FINDINGS: EXAM MEASUREMENTS: Liver Length: 13.7 cm Gallbladder: Surgically absent CBD: 0.5 cm, color Doppler imaging was utilized to isolate the common bile duct for measurement. Spleen: 9.6 cm Right Kidney: 9.1 x 4.5 x 4.4 cm Left Kidney: 10.5 x 5.1 x 5.3 cm Pancreas: wnl Liver: Slightly heterogeneous. No focal lesion. Gallbladder: Surgically absent Evidence for sonographic Rios's sign: No CBD: not well visualized Spleen: wnl Right Kidney: wnl, No hydronephrosis, calculi or masses seen Left Kidney: wnl, No hydronephrosis, calculi or masses seen Upper IVC: wnl Abd Aorta: wnl IMPRESSION: 1. Slightly heterogeneous liver parenchyma may be on a technical basis or could reflect nonspecific h epatocellular disease. 2. Status post cholecystectomy. No biliary ductal dilatation. [facility], , 07/07/2024 8:45 AM
== END | disposition home or self-care (01) ==
LOC: RADUSWWP 07:50
PROVIDERS: ATTEND Family Medicine
DX: R74.8 Abnormal levels of other serum enzymes (principal); E78.5 Hyperlipidemia, unspecified; R10.13 Epigastric pain; Z90.49 Acquired absence of other specified parts of digestive tract
CPT/HCPCS: 76700

== ENCOUNTER → 2024-10-18 | Outpatient (CLI) | payer OTHER ==
[2024-10-18 15:26] LABS: Basophils # (A) 0.07 X 10*3/uL (0.00-0.10); Basophils % (A) 0.9 %; Eosinophils # (A) 0.11 X 10*3/uL (0.04-0.35); Eosinophils % (A) 1.4 %; HCT 43.8 % (37.2-46.3); HGB 14.1 g/dL (12.0-15.0); Immature Grans, Automated 0.40 %; Lymphocytes # (A) 2.06 X 10*3/uL (0.90-5.00); Lymphocytes % (A) 26.2 %; MCH 27.8 pg (27.0-32.0); MCHC 32.2 g/dL (32.0-37.0); MCV 86.2 FL (80.0-97.0); Monocytes # (A) 0.49 X 10*3/uL (0.20-1.00); Monocytes % (A) 6.2 %; NRBC Per 100 WBC 0 X 10*3/uL (0.00-0.01); Neutrophils # (A) 5.09 X 10*3/uL (1.80-7.70); Neutrophils % (A) 64.9 %; Platelet Count 247 X 10*3/uL (140-440); RBC 5.08 X 10*6/uL (4.10-5.20); RDW 12.8 % (11.5-14.5); WBC 7.85 X 10*3/uL (4.50-10.00)
[2024-10-18 15:40] LABS: Hepatitis C IgG Antibody Nonreactive (Nonreactive)
[2024-10-18 15:41] LABS: Hepatitis B Surface Antigen Nonreactive (Nonreactive)
[2024-10-18 16:14] LABS: BUN/Creat Ratio 14.00 Ratio (12.00-20.00); Blood Urea Nitrogen 14.0 mg/dL (9.0-27.0); Chloride 107 mmol/L (96-109); Glucose 89 mg/dL (70-110); Potassium 4.2 mmol/L (3.5-5.5); Sodium 142 mmol/L (135-145)
[2024-10-18 16:15] LABS: ALT 28 U/L (8-44); AST 23 U/L (13-35); Albumin 4.1 g/dL (3.8-4.9); Albumin/Globulin Ratio 1.52 Ratio (1.60-3.17); Alkaline Phosphatase 81 U/L (41-126); Anion Gap 12.10 mmol/L (4.00-12.00); Calcium 9.1 mg/dL (8.7-10.3); Carbon Dioxide 22.9 mmol/L (21.6-31.8); Globulin 2.7 g/dL (1.6-3.3); Total Protein 6.8 g/dL (6.2-8.2)
[2024-10-18 16:22] LABS: Gliadin AB IgA, Deaminated Positive (Negative); Gliadin AB IgA, Unit >250.0 U/mL; Gliadin AB IgG, Deaminated Positive (Negative); Gliadin AB IgG, Unit 24.2 U/mL
== END | disposition home or self-care (01) ==
LOC: LABWHC1 11:06
PROVIDERS: ATTEND Internal Medicine Gastroenterology
DX: K90.0 Celiac disease (principal); R79.89 Other specified abnormal findings of blood chemistry
CPT/HCPCS: 36415; 80053; 83516; 85025; 86803; 87340